=== PATIENT | female | born 2000 | race Caucasian/White ===

== ENCOUNTER 2024-12-07 09:49 | Day surgery (SDC) | payer OTHER ==
[2024-12-03 16:30] LABS: BILIRUBIN,URINE NEGATIVE (Neg); CLARITY,URINE CLEAR (Clear); COLOR,URINE YELLOW (Yellow); GLUCOSE, URINE NEGATIVE (Neg); KETONES,URINE NEGATIVE (Neg); LEUKOCYTE ESTERASE ,URINE NEGATIVE (Neg); NITRITES, URINE POSITIVE (Neg); OCCULT BLOOD,URINE NEGATIVE (Neg); PROTEIN,URINE NEGATIVE (Neg); UROBILINOGEN,URINE 0.2 E.U/dL (0.2-1.0)
[2024-12-03 16:31] LABS: BASOPHILS % (AUTO) 0.6 % (0-1); EOSINOPHILS # (AUTO) 0.2 X10'3 (0-0.9); EOSINOPHILS % (AUTO) 2.2 % (0-6); LYMPHOCYTES # (AUTO) 2.3 X10'3 (1.1-4.8); LYMPHOCYTES % (AUTO) 30.1 % (21-51); MEAN CORPUSCULAR HGB CONC 33.9 g/dL (33.0-36.5); MEAN CORPUSCULAR VOLUME 97.3 FL (78-98); MEAN PLATELET VOLUME 7.7 FL (7.4-10.4); MONOCYTES # (AUTO) 0.7 X10'3 (0-0.9); MONOCYTES % (AUTO) 9.4 % (2-12); NEUTROPHILS # (AUTO) 4.4 X10'3 (1.8-7.7); NEUTROPHILS % (AUTO) 57.7 % (42-75); PRE OP HEMATOCRIT 41.2 % (35.0-45.0); PRE OP PLATELET COUNT 299 X10'3 (140-440); PRE OP WHITE BLOOD COUNT 7.6 10'3 (4.8-10.8); RED BLOOD COUNT 4.24 X10'6 (4.20-5.60); RED CELL DISTRIBUTION WIDTH 13.5 % (11.5-14.5)
[2024-12-03 16:35] LABS: UA COLLECTION TYPE CLN CATCH MIDSTREAM
[2024-12-03 16:38] LABS: BACTERIA,URINE 4+ /HPF (Neg); MUCUS STRANDS FEW /LPF (Neg); RBC,URINE 0-2 /HPF (0-2); SQUAMOUS EPITHELIAL CELL,UR FEW /LPF (FEW)
[2024-12-03 16:58] LABS: ALBUMIN 4.2 G/DL (3.4-5.0); ALBUMIN/GLOBULIN RATIO 1.1 (1.1-1.5); ALKALINE PHOSPHATASE 80 IU/L (46-116); BLOOD UREA NITROGEN 10 MG/DL (7-18); BUN/CREATININE RATIO 14.7 (10.0-20.0); CHLORIDE 102 MMOL/L (99-107); CREATININE 0.68 MG/DL (0.40-0.90); PRE OP ALT 24 U/L (30-65); PRE OP ANION GAP 7 (8-16); PRE OP AST 15 U/L (10-37); PRE OP BILIRUB, TOTAL 0.2 MG/DL (0.0-1.0); PRE OP GLUCOSE 99 MG/DL (70-104); PRE OP POTASSIUM 4.2 MMOL/L (3.4-5.1); PRE OP SODIUM 139 MMOL/L (135-145); TOTAL CARBON DIOXIDE 29.6 MMOL/L (24-32); TOTAL PROTEIN 8.1 G/DL (6.4-8.2); eGFR > 90 ML/MIN
[2024-12-03 17:07] LABS: HCG SERUM QL NEGATIVE
[~2024-12-07] VITALS: Ht 181.6 cm; Wt 99.0 kg
[2024-12-07] VITALS (13 sets, daily range): BP systolic 109–132; BP diastolic 53–80; PULSE 65–99; RESP 15–18; TEMP 98.6; O2SAT 95–99
[~2024-12-07 09:49] MED LIST: ACET-1995 PO; DICL20GE TOP; famotidine 20mg tablet PO ONE; ringers solution, lacted 1,000 ML IV SCH
[2024-12-07] MEDS: ceFAZolin 2gm in dextrose, iso 50 ML IV ONE (10:28)
[2024-12-07] MEDS ORDERED: bacitracin 15gm ointment TP ONE (12:14)
[2024-12-07] MEDS ORDERED: sevoflurane 250ml liquid IH ONE (12:46)
[2024-12-07] MEDS ORDERED: labetalol 20mg/4ml (5mg/ml) syringe IV PRN (12:50)
[2024-12-07] MEDS ORDERED: meperidine/PF 25mg/ml syringe IV PRN ×3 (12:50)
[2024-12-07] MEDS ORDERED: hydrALAZINE 20mg/ml inj. IV PRN (12:50)
[2024-12-07] MEDS ORDERED: proCHLORperazine 10 MG/2 ml inj IV PRN (12:50)
[2024-12-07] MEDS ORDERED: ringers solution, lacted 1,000 ML IV SCH (12:50)
[2024-12-07] MEDS ORDERED: morphine 2 MG/ML inj. syringe IV PRN (12:50)
[2024-12-07] MEDS ORDERED: morphine 4 MG/ML inj SYRINge IV PRN (12:50)
[2024-12-07] MEDS ORDERED: ondansetron/PF 4mg/2ml inj IV PRN (12:50)
[2024-12-07] MEDS ORDERED: fentaNYL/PF 50MCG/1 ML 2ML syringe ONE (12:54)
[2024-12-07] MEDS ORDERED: 0.9 % SODIUM CHLORIDE 10 ML VIAL ONE (13:36)
[2024-12-07] MEDS ORDERED: ondansetron/PF 4mg/2ml inj ONE (13:36)
[2024-12-07] MEDS ORDERED: dexamethasone sod phosphate 4mg/ml inj. ONE (13:36)
[2024-12-07] MEDS ORDERED: midazolam 1 mg/ML 2ml injection ONE (13:36)
[2024-12-07] MEDS ORDERED: ROPIVAcaine 0.5% (5mg/ml) 30ml vial ONE (13:36)
[2024-12-07] MEDS ORDERED: LIDOcaine 2% (20mg/ml) 5ml vial ONE (13:36)
[2024-12-07] MEDS ORDERED: propofol inj 20 ML IV ONE (13:36)
[2024-12-07] MEDS: acetaminophen 1,000mg/100ml IV 100 ML IV PRN (16:09)
[2024-12-07] MEDS: HYDROcodone/acetaminophen 5mg/325mg tablet PO ONE (16:09)
== END 2024-12-07 17:00 | disposition home or self-care (01) ==
LOC: PAS 09:49
PROVIDERS: ATTEND Podiatrist Foot & Ankle Surgery
DX: M20.11 Hallux valgus (acquired), right foot (principal); M21.611 Bunion of right foot; M25.374 Other instability, right foot; M35.7 Hypermobility syndrome; M21.6X1 Other acquired deformities of right foot; Z79.899 Other long term (current) drug therapy; Z98.890 Other specified postprocedural states; G89.18 Other acute postprocedural pain
CPT/HCPCS: 20902; 28298; 28740; 36415; 64447; 64450; 73620; 76942; 80053; 81001; 82948; 84703; 85025; 87077; 87088; 87186; A6223; C1713; J0131; J0690; J0735; J1100; J2003; J2250; J2405; J2704; J2795; J3010; J7030; J7120; Z7506; Z7508; Z7512; 76000; A4215; A4618; A6449; A7000